=== PATIENT | female | born 1945 | race Caucasian/White ===

== ENCOUNTER 2018-02-25 19:04 | Emergency (ER) | payer OTHER ==
[~2018-02-25] VITALS: Ht 172.7 cm; Wt 79.4 kg
[2018-02-25] MEDS ORDERED: XANAX 0.5 MG0.5 MG PO (19:17)
[2018-02-25 21:36] VITALS: BP 181/68
[2018-02-25 21:37] LABS: HEMATOCRIT 37.8 % (37.0-47.0); HEMOGLOBIN 12.8 gm/dL (12.0-15.0); MCH 30.9 pg (26.0-34.0); MCHC 33.8 g/dL (28.0-37.0); MCV 91.4 fL (80.0-100.0); RBC 4.14 mil/uL (4.20-5.00); RDW 13.5 % (10.5-14.5); WBC 6.1 thou/uL (4.0-11.0)
[2018-02-25 21:44] LABS: CALCIUM 9.1 mg/dL (8.5-10.1); CREATININE 0.7 mg/dL (0.6-1.0); POTASSIUM 3.8 mmol/L (3.5-5.1)
== END 2018-02-25 22:17 | disposition home or self-care (01) ==
LOC: ER 19:04
PROVIDERS: Emergency Medicine
DX: S86.812A Strain of other muscle(s) and tendon(s) at lower leg level, left leg, initial encounter (principal); F41.9 Anxiety disorder, unspecified; X50.1XXA Overexertion from prolonged static or awkward postures, initial encounter; Y93.89 Activity, other specified; Y92.89 Other specified places as the place of occurrence of the external cause; Y99.8 Other external cause status

== ENCOUNTER 2019-11-09 13:58 | Emergency (ER) | payer OTHER ==
[~2019-11-09] VITALS: Ht 172.7 cm; Wt 77.1 kg
--- NOTE | ~2019-11-09 | EKG ---
[facility] [place] [address] ELECTROCARDIOGRAM REPORT Name: RAJINDER VILLAFANA Room #: [facility].R.#: [id number] Admission: Attend Phys: Discharge: Date of : 41 Report #: [id number] THIS REPORT FOR: cc: Duy Anderson MD, Neal A. 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
[~2019-11-09 13:58] MED LIST: XANAX 0.5 MG0.5 MG PO
[2019-11-09 14:39] LABS: ABSOLUTE NEUTROPHILS 3.4 thou/uL (1.4-8.2); BASOPHILS 0.5 % (0.0-2.0); EOSINOPHILS 4.6 % (0.0-3.0); HEMATOCRIT 40.2 % (37.0-47.0); HEMOGLOBIN 13.1 gm/dL (12.0-15.0); LYMPHOCYTES 26.6 % (24.0-44.0); MCH 30.3 pg (26.0-34.0); MCHC 32.7 g/dL (28.0-37.0); MCV 92.5 fL (80.0-100.0); MONOCYTES 8.9 % (1.0-8.0); PLATELET COUNT 225 thou/uL (150-400); POLYS 59.4 % (36.0-66.0); RBC 4.34 mil/uL (4.20-5.00); RDW 14.1 % (10.5-14.5); WBC 5.8 thou/uL (4.0-11.0)
[2019-11-09 14:46] LABS: ANION GAP 2 mmol/L (7-16); BUN 9 mg/dL (7-18); CHLORIDE 105 mmol/L (98-107); CO2 30 mmol/L (21-32); CREATININE 0.8 mg/dL (0.6-1.0); GLUCOSE 98 mg/dL (74-106); POTASSIUM 4.1 mmol/L (3.5-5.1); SODIUM 137 mmol/L (136-145)
[2019-11-09 14:56] LABS: ALBUMIN 3.9 g/dL (3.4-5.0); SGOT 18 U/L (15-37); SGPT 29 U/L (30-65); TOTAL BILIRUBIN 0.3 mg/dL (<0.1-1.0); TOTAL PROTEIN 7.5 g/dL (6.4-8.2); TROPONIN-I <0.06 ng/mL (<0.06)
[2019-11-09] MEDS ORDERED: COZAAR 25 MG TA25 M2 PO (16:23)
[2019-11-09 16:39] VITALS: BP 142/76
== END 2019-11-09 16:45 | disposition home or self-care (01) ==
LOC: ER 13:58
PROVIDERS: Physician Assistant
DX: I10 Essential (primary) hypertension (principal); R07.9 Chest pain, unspecified; F41.9 Anxiety disorder, unspecified

== ENCOUNTER → 2020-12-08 | Outpatient (CLI) | payer OTHER ==
[~2020-12-08] MED LIST changes: +COZAAR 25 MG TA25 M2 PO
== END ==
LOC: CAT 12:59
PROVIDERS: ATTEND Family Medicine
DX: Z13.6 Encounter for screening for cardiovascular disorders (principal); I25.10 Atherosclerotic heart disease of native coronary artery without angina pectoris; E78.00 Pure hypercholesterolemia, unspecified